=== PATIENT | female | born 2000 | race Caucasian/White ===

== ENCOUNTER 2018-12-18 09:10 | Emergency (ER) | payer OTHER ==
[2018-12-18 10:10] LABS: URINE BLOOD (Dip) POC 1+ (NEGATIVE); URINE GLUCOSE (Dip) POC Negative (NEGATIVE); URINE KETONES (Dip) POC Negative (NEGATIVE); URINE LEUKOCYTE EST (Dip) POC Negative (NEGATIVE); URINE NITRITE (Dip) POC Negative (NEGATIVE); URINE TOTAL PROTEIN POC Negative (NEGATIVE)
[2018-12-18] MEDS: IBUPROFEN 600 MG TAB PO (10:13)
== END 2018-12-18 10:35 | disposition home or self-care (01) ==
LOC: FTE 09:10
DX: R50.9 Fever, unspecified (principal); M54.5 Low back pain; R09.89 Other specified symptoms and signs involving the circulatory and respiratory systems; R05 Cough
CPT/HCPCS: 81003; 99282

== ENCOUNTER 2019-04-03 13:35 | Emergency (ER) | payer OTHER ==
[2019-04-03] MEDS: DEXAMETHASONE 10 MG/ML 1 ML INJ IM (14:17)
[2019-04-03] MEDS: ACETAMINOPHEN 325 MG TAB PO (14:18)
[2019-04-03] MEDS: ONDANSETRON (ODT) 4 MG TAB ODT (14:18)
[2019-04-03] MEDS: IPRATROPIUM (NEB) 0.5 MG/2.5 ML AMP INH (14:37)
[2019-04-03] MEDS: LEVALBUTEROL (NEB) 1.25 MG/0.5 ML AMP INH ×2 (14:37→17:18)
[2019-04-03] MEDS: KETOROLAC 60 MG INJ IM (15:20)
[2019-04-03 16:27] LABS: URINE BLOOD (Dip) POC 3+ (NEGATIVE); URINE GLUCOSE (Dip) POC Negative (NEGATIVE); URINE KETONES (Dip) POC 1+ (NEGATIVE); URINE LEUKOCYTE EST (Dip) POC 1+ (NEGATIVE); URINE NITRITE (Dip) POC Positive (NEGATIVE); URINE TOTAL PROTEIN POC 3+ (NEGATIVE)
[2019-04-03] MEDS: CEFTRIAXONE 1 GM INJ IM (18:51)
[2019-04-03] MEDS: LIDOCAINE 1% (MPF) 5 ML VIAL INJ (18:52)
== END 2019-04-03 19:00 | disposition home or self-care (01) ==
LOC: FTE 13:35
DX: N39.0 Urinary tract infection, site not specified (principal); J45.901 Unspecified asthma with (acute) exacerbation
CPT/HCPCS: 71045; 81003; 81025; 93005; 94644; 96372; 99285-25

== ENCOUNTER 2019-06-12 17:46 | Emergency (ER) | payer OTHER ==
[2019-06-12 19:17] LABS: ADD MAN DIFF? NO
[2019-06-12] MEDS: ONDANSETRON 4 MG INJ IV (19:19)
[2019-06-12] MEDS: SOD CHLORIDE 0.9% 1,000 ML IV (19:19)
[2019-06-12] MEDS: FAMOTIDINE 20 MG INJ IV (19:19)
[2019-06-12] MEDS: morphine 4 MG/ML VIAL IV (19:19)
[2019-06-12 19:21] LABS: ABNORMAL IP MESSAGE 1; BASOPHILS % 0.2 % (0.0-2.0); EOSINOPHILS # 0.1 10^3/ul (0.0-0.5); EOSINOPHILS % 0.6 % (0.0-7.0); HEMATOCRIT 40.4 % (37.0-47.0); HEMOGLOBIN 13.4 g/dl (12.0-16.0); LYMPHOCYTES # 0.5 10^3/ul (0.8-2.9); LYMPHOCYTES % 4.4 % (18.0-55.0); MEAN CORPUSCULAR HEMOGLOBIN 28.7 pg (29.0-33.0); MEAN CORPUSCULAR HGB CONC 33.2 g/dl (32.0-37.0); MEAN CORPUSCULAR VOLUME 86.5 fl (72.0-104.0); MEAN PLATELET VOLUME 10.2 fl (7.4-10.4); MONOCYTE # 0.5 10^3/ul (0.3-0.9); NEUTROPHILS % 90.4 % (30.0-74.0); PLATELET COUNT 258 10^3/UL (140-415); RED BLOOD COUNT 4.67 10^6/ul (4.20-5.40); RED CELL DISTRIBUTION WIDTH 13.2 % (11.5-14.5)
[2019-06-12 19:21] LABS: WHITE BLOOD COUNT 12.2 10^3/ul (4.8-10.8)
[2019-06-12 19:24] LABS: POSITIVE DIFF @See below
[2019-06-12 19:26] LABS: ADD UMIC YES; UR ASCORBIC ACID NEGATIVE (NEGATIVE); UR BILIRUBIN (Dip) NEGATIVE (NEGATIVE); UR BLOOD (Dip) 1+ mg/dL (NEGATIVE); UR CLARITY CLEAR (CLEAR); UR COLOR YELLOW (YELLOW); UR GLUCOSE (Dip) NEGATIVE (NEGATIVE); UR KETONES (Dip) 1+ mg/dL (NEGATIVE); UR LEUKOCYTE ESTERASE (Dip) NEGATIVE Leu/ul (NEGATIVE); UR MUCUS FEW /HPF (NONE SEEN); UR NITRITE (Dip) NEGATIVE (NEGATIVE); UR RBC 2 /HPF (0-5); UR SQUAMOUS EPITHELIAL CELL FEW /HPF (FEW); UR TOTAL PROTEIN (Dip) NEGATIVE (NEGATIVE); UR UROBILINOGEN (Dip) NEGATIVE (NEGATIVE); UR WBC 1 /HPF (0-5)
[2019-06-12 19:38] LABS: ALANINE AMINOTRANSFERASE 22 IU/L (13-69); ALBUMIN 4.8 g/dl (3.3-4.9); ALBUMIN/GLOBULIN RATIO 1.26; ALKALINE PHOSPHATASE 62 IU/L (42-121); ANION GAP 12 (5-13); ASPARTATE AMINO TRANSFERASE 27 IU/L (15-46); BILIRUBIN,INDIRECT 0.9 mg/dl (0-1.1); BILIRUBIN,TOTAL 0.9 mg/dl (0.2-1.3); BLOOD UREA NITROGEN 14 mg/dl (7-20); CALCIUM 9.9 mg/dl (8.4-10.2); CARBON DIOXIDE 25 mmol/L (21-31); CHLORIDE 105 mmol/L (97-110); CREATININE 0.67 mg/dl (0.44-1.00); Estimated GFR > 60 mL/min (>60); GLUCOSE 122 mg/dl (70-220); LIPASE 40 U/L (23-300); POTASSIUM 3.7 mmol/L (3.5-5.1); SODIUM 142 mmol/L (135-144); TOTAL PROTEIN 8.6 g/dl (6.1-8.1)
[2019-06-12] MEDS: SOD CHLORIDE 0.9% 100 ML (20:17)
[2019-06-12] MEDS: IOHEXOL 300MG/ML 150 ML BTL (20:18)
[2019-06-12] MEDS: METOCLOPRAMIDE 10 MG INJ IV (20:53)
[2019-06-12] MEDS: KETOROLAC 15 MG INJ IV (21:12)
== END 2019-06-12 22:03 | disposition home or self-care (01) ==
LOC: FTE 17:46
DX: K52.9 Noninfective gastroenteritis and colitis, unspecified (principal); J45.909 Unspecified asthma, uncomplicated
CPT/HCPCS: 36415; 74177; 80053; 81001; 81025; 83690; 85025; 96374; 96375; 99285-25